=== PATIENT | male | born 1980 | race Two or more races ===

== ENCOUNTER 2019-01-15 14:11 | Emergency (ER) | payer OTHER ==
[~2019-01-15] VITALS: Ht 188 cm; Wt 167.8 kg
[2019-01-15 14:29] VITALS: BP 129/64
[2019-01-15 15:11] LABS: Albumin 3.6 g/dL (3.4-5.0); Anion Gap 7 (5-15); Basophils # (auto) 0.1 uL; Basophils % (auto) 0.6 % (0.0-2.0); Blood Urea Nitrogen 9 mg/dL (7-18); Calcium 8.4 mg/dL (8.5-10.1); Carbon Dioxide 25 mmol/L (21-32); Chloride 107 mmol/L (98-107); Eosinophils # (auto) 0 uL; Eosinophils % (auto) 0.4 % (0.0-7.0); Glucose 145 mg/dL (74-106); Hemoglobin 15.7 g/dL (13.5-17.5); Lymphocytes # (auto) 1.4 uL; Lymphocytes % (auto) 16.5 % (10.0-50.0); Mean Corpuscular Hgb Conc. 34.1 g/dL (32.0-36.0); Mean Corpuscular Volume 88.2 fL (80.0-100.0); Monocytes # (auto) 0.5 uL; Monocytes % (auto) 6.4 % (0.0-12.0); Neutrophils # (auto) 6.5 uL; Neutrophils % (auto) 76.1 % (37.0-80.0); Nucleated Red Blood Cells % 0.2 %; Platelet Count (auto) 209 10^3/uL (140-450); Potassium 3.8 mmol/L (3.5-5.1); Red Blood Cells 5.21 10^6/uL (4.5-5.90); Red Cell Distribution Width 13.4 % (11.8-14.3); Sodium 139 mmol/L (136-145); White Blood Cell 8.5 10^3/uL (4.4-10.8)
[2019-01-15 15:17] LABS: Alanine Aminotransferase 34 U/L (16-61); Alkaline Phosphatase 73 U/L (45-117); Aspartate Aminotransferase 18 U/L (15-37); BUN/Creatinine Ratio 9.5; Bilirubin, Total 0.5 mg/dL (0.2-1.0); GFR African American 115 mL/min; GFR Non-African American 95 mL/min; Total Protein 7.5 g/dL (6.4-8.2)
[2019-01-15] MEDS ORDERED: SODIUM CHLORIDE 0.9% 1,000 ML IV ONE (15:21)
[2019-01-15] MEDS ORDERED: SODIUM CHLORIDE 0.9% 1,000 ML IVB ONE (15:21)
[2019-01-15 15:30] LABS: Urine WBC None Seen /hpf (0 - 3)
[2019-01-15] MEDS ORDERED: ASPirin 81 mg TAB PO ONE (15:30)
[2019-01-15 15:41] LABS: Urine Bacteria NONE SEEN /hpf (None Seen); Urine Blood Negative /uL (Negative); Urine Specific Gravity 1.015 (1.001-1.035)
== END 2019-01-15 16:58 | disposition home or self-care (01) ==
LOC: EDBD 14:11 → ER 14:11
DX: R07.89 Other chest pain (principal); K21.9 Gastro-esophageal reflux disease without esophagitis; E11.65 Type 2 diabetes mellitus with hyperglycemia; R42 Dizziness and giddiness
CPT/HCPCS: 36415; 71045; 80053; 81001; 83036; 83735; 84443; 84484; 85025; 93005; 96360; 99284; J7030